=== PATIENT | male | born 1935 | race Caucasian/White ===

== ENCOUNTER 2019-05-25 18:32 | Inpatient (IN) ==
[2019-05-25] MEDS ORDERED: ACETAMINOPHEN 325 MG TABLET PO ONE (18:44)
[2019-05-25] MEDS ORDERED: metroNIDAZOLE INJ 500 MG in PREMIX 1 EACH IV STA (19:02)
[2019-05-25] MEDS ORDERED: CEFEPIME 2,000 MG in SODIUM CHLORIDE 0.9% 100 ML IV STA (19:02)
[2019-05-25] MEDS ORDERED: VANCOMYCIN INJ 1,000 MG in SODIUM CHLORIDE 0.9% 250 ML IV STA (19:02)
[2019-05-25 19:45] LABS: Basophils % 0.1 % (0.0-0.8); Eosinophils % 0.1 % (0.00-10.9); Hematocrit 37.7 VOL% (42.0-52.0); Hemoglobin 11.8 GM/DL (14.0-18.0); Immature Granulocytes % 0.9 %; Immature Granulocytes Absolute 0.33 #; Lymphocytes # 18.1 10*3/uL (1.4-4.0); Lymphocytes % 48.5 % (21.2-54.2); Mean Corpuscular HGB Conc 31.3 GM/DL (32-36); Mean Corpuscular Volume 96.2 FL (87-102); Mean Platelet Volume 10.9 FL (9.6-12.0); Monocytes % 6.2 % (1.7-12.7); Neutrophils % 44.2 % (38.7-73.9); Platelet Count 194 T/CUMM (130-400); Red Blood Count 3.92 MC/CUMM (3.8-5.5); White Blood Count 37.3 T/CUMM (4-12)
[2019-05-25 20:14] LABS: Alanine Aminotransferase 22 U/L (16-61); Albumin 3.7 G/DL (3.4-5.0); Alkaline Phosphatase 60 U/L (45-117); Aspartate Amino Transferase 17 U/L (0-37); Bilirubin,Total < 0.39 MG/DL (0.2-1.0); Blood Urea Nitrogen 29 MG/DL (7-18); Glucose 135 MG/DL (74-106)
[2019-05-25 20:49] LABS: Apearance,Urine CLEAR (Clear); Bilirubin,Urine Negative (Negative); Blood, Urine Negative (Negative); Glucose,Urine (UA) Negative (Negative); Ketones,Urine Negative (Negative); Mucus,Urine Occasional /LPF (Occasional); Nitrite,Urine Negative (Negative); Protein,Urine 30 MG/DL; RBC,Urine 2 /HPF (0-4); Squamous Epithelial Cell,Urine Occasional /HPF (0-10); Urine Color Yellow (Yellow); Urine Specific Gravity 1.019 (1.001-1.035); Urine Urobilinogen < 2.0 EU/DL (0.2-1.0); WBC,Urine 1 /HPF (0-6)
[2019-05-25] MEDS ORDERED: SODIUM CHLORIDE 0.9% 1,000 ML IV STA (20:53)
[2019-05-25 21:29] LABS: Sedimentation Rate-Westergren 16 MM/HR (0-20)
[2019-05-25] MEDS ORDERED: DOCUSATE SODIUM 100 MG CAPSULE PO PRN (21:36)
[2019-05-25] MEDS ORDERED: ONDANSETRON 4 MG/2 ML VIAL IV PRN (21:36)
[2019-05-25] MEDS ORDERED: ACETAMINOPHEN 325 MG TABLET PO PRN (21:36)
[2019-05-25] MEDS ORDERED: guaiFENesin/DM ER 600-30 MG TABLET PO PRN (21:36)
[2019-05-25] MEDS ORDERED: ZALEPLON 5 MG CAPSULE PO PRN (21:36)
[2019-05-25] MEDS ORDERED: PROMETHAZINE 25 MG TABLET PO PRN (21:36)
[2019-05-25] MEDS ORDERED: MORPHINE 4 MG/1 ML VIAL IV PRN (21:36)
[2019-05-25] MEDS ORDERED: BISACODYL 5 MG TABLET PO PRN (21:36)
[2019-05-25] MEDS ORDERED: GLUCAGON 1 MG VIAL IM PRN (21:44)
[2019-05-25] MEDS ORDERED: DEXTROSE 50% 25 GM/50 ML VIAL IV PRN ×2 (21:44→21:46)
[2019-05-25 22:17] LABS: Eosinophils 1 % (0-10); Lymphocytes 64 % (20-55); Platelet Estimate Normal; Segmented Neutrophils 35 % (50-85); Total Cells Counted 100
[2019-05-26] MEDS: SODIUM CHLORIDE 0.9% 1,000 ML IV SCH ×2 (02:00→16:34)
[2019-05-26] MEDS: metroNIDAZOLE INJ 500 MG in PREMIX 1 EACH IV SCH ×2 (04:26→12:39)
[2019-05-26 05:16] LABS: Basophils # 0.1 10*3/uL (0.0-0.2); Basophils % 0.2 % (0.0-0.8); Hematocrit 34.3 VOL% (42.0-52.0); Hemoglobin 10.8 GM/DL (14.0-18.0); Immature Granulocytes % 0.6 %; Lymphocytes # 15.2 10*3/uL (1.4-4.0); Lymphocytes % 45.2 % (21.2-54.2); Mean Corpuscular HGB Conc 31.5 GM/DL (32-36); Mean Corpuscular Volume 96.1 FL (87-102); Mean Platelet Volume 12.1 FL (9.6-12.0); Monocytes % 7.5 % (1.7-12.7); Neutrophils % 46.5 % (38.7-73.9); Platelet Count 171 T/CUMM (130-400); Red Blood Count 3.57 MC/CUMM (3.8-5.5); Red Cell Distribution Width 14.2 % (9.3-17.3); White Blood Count 33.7 T/CUMM (4-12)
[2019-05-26 05:46] LABS: Albumin 3.3 G/DL (3.4-5.0); Bilirubin,Total 0.6 MG/DL (0.2-1.0); Calcium 8.6 MG/DL (8.5-10.1); Osmolality,Calculated 288.3 MOS/KG (273-304); Total Protein 6.2 G/DL (6.4-8.3)
[2019-05-26 06:05] LABS: Anisocytosis 1+; Band Neutrophils 4 % (0-10); Lymphocytes 27 % (20-55); Segmented Neutrophils 66 % (50-85); Total Cells Counted 100
[2019-05-26 06:06] LABS: Platelet Estimate Adequate
[2019-05-26] MEDS: ASPIRIN CHEW 81 MG TABLET PO SCH (09:58)
[2019-05-26] MEDS: METOPROLOL TARTRATE 50 MG TABLET PO SCH ×2 (09:58→22:15)
[2019-05-26] MEDS: CEFEPIME 2,000 MG in SODIUM CHLORIDE 0.9% 100 ML IV SCH ×2 (09:58→23:59)
[2019-05-26] MEDS: PANTOPRAZOLE 40 MG TABLET PO SCH (09:59)
[2019-05-26] MEDS ORDERED: VANCOMYCIN INJ 1,500 MG in SODIUM CHLORIDE 0.9% 500 ML IV SCH (10:00)
[2019-05-26] MEDS ORDERED: IMMUNE GLOBULIN 10% 20 GM, IMMUNE GLOBULIN 10% 5 GM in PREMIX 1 EACH IV ONE (11:00)
[2019-05-26] MEDS: INSULIN LISPRO 100 UNIT/ML SUBCUT SCH ×4 (11:43→22:15)
[2019-05-26] MEDS: CLOPIDOGREL 75 MG TABLET PO SCH (11:44)
[2019-05-26] MEDS: ROSUVASTATIN 20 MG TABLET PO SCH (22:14)
[2019-05-27] MEDS: SODIUM CHLORIDE 0.9% 1,000 ML IV SCH
[2019-05-27] MEDS: metroNIDAZOLE INJ 500 MG in PREMIX 1 EACH IV SCH ×3 (01:03→17:50)
[2019-05-27 06:15] LABS: Basophils # 0.1 10*3/uL (0.0-0.2); Basophils % 0.3 % (0.0-0.8); Eosinophils % 0.1 % (0.00-10.9); Hematocrit 34.6 VOL% (42.0-52.0); Hemoglobin 10.4 GM/DL (14.0-18.0); Immature Granulocytes % 0.5 %; Lymphocytes # 11.5 10*3/uL (1.4-4.0); Lymphocytes % 59.1 % (21.2-54.2); Mean Corpuscular HGB Conc 30.1 GM/DL (32-36); Mean Platelet Volume 11.8 FL (9.6-12.0); Monocytes % 9.6 % (1.7-12.7); Neutrophils % 30.4 % (38.7-73.9); Platelet Count 124 T/CUMM (130-400); Red Blood Count 3.53 MC/CUMM (3.8-5.5); Red Cell Distribution Width 14.6 % (9.3-17.3); White Blood Count 19.5 T/CUMM (4-12)
[2019-05-27 06:39] LABS: Calcium 8.4 MG/DL (8.5-10.1); Osmolality,Calculated 289.3 MOS/KG (273-304)
[2019-05-27 08:12] LABS: Atypical Lymphocytes Few; Lymphocytes 53 % (20-55); Platelet Estimate Adequate; Polychromasia Slight; Reactive Lymphocytes Few; Segmented Neutrophils 45 % (50-85); Total Cells Counted 100
[2019-05-27] MEDS: CEFEPIME 2,000 MG in SODIUM CHLORIDE 0.9% 100 ML IV SCH ×2 (09:36→21:48)
[2019-05-27] MEDS: glipiZIDE 5 MG TABLET PO SCH ×2 (09:39→16:08)
[2019-05-27] MEDS: PANTOPRAZOLE 40 MG TABLET PO SCH (09:39)
[2019-05-27] MEDS: ASPIRIN CHEW 81 MG TABLET PO SCH (09:40)
[2019-05-27] MEDS: INSULIN LISPRO 100 UNIT/ML SUBCUT SCH ×4 (09:40→23:19)
[2019-05-27] MEDS: METOPROLOL TARTRATE 50 MG TABLET PO SCH ×2 (09:40→15:01)
[2019-05-27] MEDS: CLOPIDOGREL 75 MG TABLET PO SCH (15:01)
[2019-05-27] MEDS: TAMSULOSIN 0.4 MG CAPSULE PO SCH (21:53)
[2019-05-27] MEDS: ROSUVASTATIN 20 MG TABLET PO SCH (21:54)
[2019-05-28] MEDS: metroNIDAZOLE INJ 500 MG in PREMIX 1 EACH IV SCH ×3 (01:33→17:21)
[2019-05-28] MEDS: INSULIN LISPRO 100 UNIT/ML SUBCUT SCH ×4 (08:45→20:24)
[2019-05-28] MEDS: ASPIRIN CHEW 81 MG TABLET PO SCH (08:46)
[2019-05-28] MEDS: METOPROLOL TARTRATE 50 MG TABLET PO SCH (08:47)
[2019-05-28] MEDS: glipiZIDE 5 MG TABLET PO SCH ×2 (08:47→17:17)
[2019-05-28] MEDS: CLOPIDOGREL 75 MG TABLET PO SCH (08:47)
[2019-05-28] MEDS: PANTOPRAZOLE 40 MG TABLET PO SCH (08:47)
[2019-05-28] MEDS: CEFEPIME 2,000 MG in SODIUM CHLORIDE 0.9% 100 ML IV SCH ×2 (08:48→20:26)
[2019-05-28] MEDS: ROSUVASTATIN 20 MG TABLET PO SCH (20:26)
[2019-05-28] MEDS: TAMSULOSIN 0.4 MG CAPSULE PO SCH (20:26)
[2019-05-28] MEDS ORDERED: cefTRIAXone 1,000 MG in SYRINGE 1 EACH IV SCH (21:00)
[2019-05-28] MEDS: ENOXAPARIN 30 MG/0.3 ML SYRINGE SUBCUT SCH (23:24)
[2019-05-28] MEDS: ERTAPENEM 1,000 MG in SODIUM CHLORIDE 0.9% 100 ML IV SCH (23:25)
[2019-05-29 06:30] LABS: Basophils # 0.1 10*3/uL (0.0-0.2); Basophils % 0.2 % (0.0-0.8); Eosinophils # 0.2 10*3/uL (0.0-0.87); Eosinophils % 0.6 % (0.00-10.9); Hematocrit 32.9 VOL% (42.0-52.0); Hemoglobin 10.2 GM/DL (14.0-18.0); Immature Granulocytes % 0.6 %; Immature Granulocytes Absolute 0.14 #; Lymphocytes # 14.1 10*3/uL (1.4-4.0); Lymphocytes % 58.9 % (21.2-54.2); Mean Corpuscular Volume 97.1 FL (87-102); Mean Platelet Volume 12.5 FL (9.6-12.0); Monocytes % 12.8 % (1.7-12.7); Neutrophils % 26.9 % (38.7-73.9); Platelet Count 145 T/CUMM (130-400); Red Blood Count 3.39 MC/CUMM (3.8-5.5); Red Cell Distribution Width 14.5 % (9.3-17.3)
[2019-05-29 06:51] LABS: Calcium 8.4 MG/DL (8.5-10.1); Osmolality,Calculated 286.3 MOS/KG (273-304)
[2019-05-29 06:53] LABS: Lymphocytes 42 % (20-55); Segmented Neutrophils 53 % (50-85); Total Cells Counted 100
[2019-05-29 06:54] LABS: Anisocytosis 1+; Platelet Estimate Adequate
[2019-05-29] MEDS: INSULIN LISPRO 100 UNIT/ML SUBCUT SCH ×4 (08:14→21:03)
[2019-05-29] MEDS: METOPROLOL TARTRATE 50 MG TABLET PO SCH (08:16)
[2019-05-29] MEDS: ASPIRIN CHEW 81 MG TABLET PO SCH (08:16)
[2019-05-29] MEDS: glipiZIDE 5 MG TABLET PO SCH ×2 (08:16→17:31)
[2019-05-29] MEDS: PANTOPRAZOLE 40 MG TABLET PO SCH (08:16)
[2019-05-29] MEDS: TAMSULOSIN 0.4 MG CAPSULE PO SCH (20:54)
[2019-05-29] MEDS: ROSUVASTATIN 20 MG TABLET PO SCH (20:55)
[2019-05-29] MEDS: ENOXAPARIN 30 MG/0.3 ML SYRINGE SUBCUT SCH (21:01)
[2019-05-29] MEDS: ERTAPENEM 1,000 MG in SODIUM CHLORIDE 0.9% 100 ML IV SCH (21:02)
[2019-05-30] MEDS: glipiZIDE 5 MG TABLET PO SCH (09:30)
[2019-05-30] MEDS: CLOPIDOGREL 75 MG TABLET PO SCH (09:30)
[2019-05-30] MEDS: ASPIRIN CHEW 81 MG TABLET PO SCH (09:30)
[2019-05-30] MEDS: METOPROLOL TARTRATE 50 MG TABLET PO SCH (09:30)
[2019-05-30] MEDS: PANTOPRAZOLE 40 MG TABLET PO SCH (09:31)
[2019-05-30 12:23] VITALS: BP 144/66
[2019-05-30] MEDS ORDERED: CEFUROXIME 500 MG TABLET PO SCH (21:00)
== END 2019-05-30 14:55 | disposition home or self-care (01) | DRG 872 ==
LOC: N.EDINP 18:32 → N.ED 18:32 → SUATTDRO 21:36 → N.4E 23:09 → SUATTDRO 05-26 10:58 → SUPCPDRO 05-26 10:58
PROVIDERS: ADMIT Internal Medicine; ATTEND Hospitalist

== ENCOUNTER 2019-12-23 16:37 | Inpatient (IN) ==
[2019-12-23] MEDS ORDERED: ACETAMINOPHEN 500 MG TABLET PO STA ×2 (16:46→17:29)
[2019-12-23] MEDS ORDERED: MEROPENEM 2,000 MG in SODIUM CHLORIDE 0.9% 100 ML IV STA (17:01)
[2019-12-23] MEDS ORDERED: SODIUM CHLORIDE 0.9% 500 ML IV STA (17:01)
[2019-12-23 17:32] LABS: Basophils # 0.1 10*3/uL (0.0-0.2); Basophils % 0.2 % (0.0-0.8); Eosinophils % 0.1 % (0.00-10.9); Hematocrit 39.4 VOL% (42.0-52.0); Hemoglobin 12.3 GM/DL (14.0-18.0); Immature Granulocytes % 0.3 %; Lymphocytes # 20.5 10*3/uL (1.4-4.0); Lymphocytes % 70.2 % (21.2-54.2); Mean Corpuscular HGB Conc 31.2 GM/DL (32-36); Mean Platelet Volume 11.1 FL (9.6-12.0); Monocytes % 3.2 % (1.7-12.7); Platelet Count 177 T/CUMM (130-400); Red Blood Count 4.06 MC/CUMM (3.8-5.5); Red Cell Distribution Width 13.2 % (9.3-17.3); White Blood Count 29.2 T/CUMM (4-12)
[2019-12-23 17:52] LABS: Albumin 3.7 G/DL (3.4-5.0); Bilirubin,Total 0.4 MG/DL (0.2-1.0); Calcium 9.4 MG/DL (8.5-10.1); Osmolality,Calculated 276.4 MOS/KG (273-304); Total Protein 7.2 G/DL (6.4-8.3)
[2019-12-23 17:57] LABS: Amylase 40 U/L (25-115); Troponin I < 0.015 NG/ML (0.00-0.045)
[2019-12-23 17:58] LABS: Anisocytosis Slight; Lymphocytes 71 % (20-55); Macrocytosis Slight; Platelet Estimate Adequate; Segmented Neutrophils 26 % (50-85); Total Cells Counted 100
[2019-12-23 18:08] LABS: Apearance,Urine CLEAR (Clear); Bacteria,Urine Occasional /HPF (Few); Bilirubin,Urine Negative (Negative); Blood, Urine Small mg/dL (Negative); Glucose,Urine (UA) Negative (Negative); Hyaline Casts,Urine 3 /LPF (0-3); Ketones,Urine Negative (Negative); Mucus,Urine Occasional /LPF (Occasional); Nitrite,Urine Negative (Negative); Protein,Urine Negative; RBC,Urine 1 /HPF (0-4); Urine Color Straw (Yellow); Urine Specific Gravity 1.008 (1.001-1.035); Urine Urobilinogen < 2.0 EU/DL (0.2-1.0); WBC,Urine 1 /HPF (0-6)
[2019-12-23] MEDS ORDERED: ACETAMINOPHEN 325 MG TABLET PO PRN (18:31)
[2019-12-23] MEDS ORDERED: DEXTROSE 50% 25 GM/50 ML SYRINGE IV PRN (18:31)
[2019-12-23] MEDS ORDERED: GLUCAGON 1 MG VIAL IM PRN (18:31)
[2019-12-23] MEDS ORDERED: ONDANSETRON 4 MG/2 ML VIAL IV PRN (18:31)
[2019-12-23] MEDS ORDERED: BRINZOLAMIDE BRIMONIDINE LEFT EYE SCH (21:00)
[2019-12-23] MEDS: ASPIRIN CHEW 81 MG TABLET PO SCH (21:30)
[2019-12-23] MEDS: TAMSULOSIN 0.4 MG CAPSULE PO SCH (21:30)
[2019-12-23] MEDS: ENOXAPARIN 40 MG/0.4 ML SYRINGE SUBCUT SCH (21:35)
[2019-12-23] MEDS: LATANOPROST 0.005% OPH SOLN 2.5 ML BOTTLE LEFT EYE SCH (23:07)
[2019-12-23] MEDS: INSULIN REGULAR 100 UNIT/ML SUBCUT SCH (23:07)
[2019-12-24] MEDS: MEROPENEM 2,000 MG in SODIUM CHLORIDE 0.9% 100 ML IV SCH ×3 (02:12→18:09)
[2019-12-24 06:54] LABS: Basophils # 0.1 10*3/uL (0.0-0.2); Basophils % 0.2 % (0.0-0.8); Eosinophils # 0.1 10*3/uL (0.0-0.87); Eosinophils % 0.5 % (0.00-10.9); Hematocrit 38.1 VOL% (42.0-52.0); Hemoglobin 11.6 GM/DL (14.0-18.0); Immature Granulocytes % 0.4 %; Immature Granulocytes Absolute 0.09 #; Lymphocytes # 16.7 10*3/uL (1.4-4.0); Lymphocytes % 69.3 % (21.2-54.2); Mean Corpuscular HGB Conc 30.4 GM/DL (32-36); Mean Corpuscular Volume 99.5 FL (87-102); Mean Platelet Volume 11.1 FL (9.6-12.0); Monocytes % 4.4 % (1.7-12.7); Neutrophils % 25.2 % (38.7-73.9); Platelet Count 157 T/CUMM (130-400); Red Blood Count 3.83 MC/CUMM (3.8-5.5); Red Cell Distribution Width 13.3 % (9.3-17.3); White Blood Count 24.1 T/CUMM (4-12)
[2019-12-24 07:17] LABS: Atypical Lymphocytes Few; Eosinophils 1 % (0-10); Hypochromasia 1+; Lymphocytes 59 % (20-55); Segmented Neutrophils 37 % (50-85); Total Cells Counted 100
[2019-12-24 07:18] LABS: Macrocytosis Slight; Platelet Estimate Adequate; Smudge Cells Few
[2019-12-24 07:34] LABS: Alanine Aminotransferase 19 U/L (16-61); Albumin 3.3 G/DL (3.4-5.0); Alkaline Phosphatase 42 U/L (45-117); Aspartate Amino Transferase 16 U/L (0-37); Bilirubin,Total < 0.39 MG/DL (0.2-1.0); Blood Urea Nitrogen 37 MG/DL (7-18); Calcium 8.7 MG/DL (8.5-10.1); Estimated Glom Filtration Rate 41 ML/MIN; Glucose 113 MG/DL (74-106); Osmolality,Calculated 284.7 MOS/KG (273-304); Total Protein 6.6 G/DL (6.4-8.3)
[2019-12-24] MEDS ORDERED: ERGOCALCIFEROL 50,000 UNIT CAPSULE PO SCH (09:00)
[2019-12-24] MEDS ORDERED: CLOPIDOGREL 75 MG TABLET PO SCH (09:00)
[2019-12-24] MEDS: INSULIN REGULAR 100 UNIT/ML SUBCUT SCH ×4 (09:10→20:56)
[2019-12-24] MEDS: METOPROLOL TARTRATE 50 MG TABLET PO SCH (09:17)
[2019-12-24] MEDS: ROSUVASTATIN 20 MG TABLET PO SCH (09:17)
[2019-12-24] MEDS: PANTOPRAZOLE 40 MG TABLET PO SCH (09:17)
[2019-12-24] MEDS: TAMSULOSIN 0.4 MG CAPSULE PO SCH (20:56)
[2019-12-24] MEDS: ASPIRIN CHEW 81 MG TABLET PO SCH (20:56)
[2019-12-24] MEDS: ENOXAPARIN 40 MG/0.4 ML SYRINGE SUBCUT SCH (20:56)
[2019-12-24] MEDS: LATANOPROST 0.005% OPH SOLN 2.5 ML BOTTLE LEFT EYE SCH (20:56)
[2019-12-25] MEDS: MEROPENEM 2,000 MG in SODIUM CHLORIDE 0.9% 100 ML IV SCH ×2 (02:20→10:42)
[2019-12-25] MEDS: INSULIN REGULAR 100 UNIT/ML SUBCUT SCH ×2 (07:22→11:22)
[2019-12-25] MEDS: METOPROLOL TARTRATE 50 MG TABLET PO SCH (09:05)
[2019-12-25] MEDS: ROSUVASTATIN 20 MG TABLET PO SCH (09:05)
[2019-12-25] MEDS: PANTOPRAZOLE 40 MG TABLET PO SCH (09:05)
[2019-12-25 16:09] VITALS: BP 150/73
== END 2019-12-25 17:05 | disposition home or self-care (01) | DRG 864 ==
LOC: N.ED 16:37 → N.EDINP 18:31 → N.4E 18:51
PROVIDERS: ADMIT Internal Medicine; ATTEND Internal Medicine